=== PATIENT | female | born 1935 | race Caucasian/White ===

== ENCOUNTER 2023-04-09 16:12 | Observation (INO) | payer OTHER ==
[2023-04-09 18:16] VITALS: BMI 25.2
[2023-04-09] MEDS ORDERED: Doxepin HCl 10 MG CAP PO PRN (21:27)
[2023-04-09] MEDS ORDERED: Acetaminophen 650 MG Suppository PR PRN (21:28)
[2023-04-09] MEDS ORDERED: Ondansetron ODT 4 MG TAB PO PRN (21:28)
[2023-04-09] MEDS ORDERED: Acetaminophen 325 MG TAB PO PRN (21:28)
[2023-04-10 04:20] LABS: Anion Gap 12 mmol/L (10-20); BUN (Urea Nitrogen) 19 mg/dL (9.8-20.1); Calc. Creatinine Clearance 40 mL/min (70-130); Calcium 8.6 mg/dL (7.8-10.44); Carbon Dioxide 24 mmol/L (23-31); Chloride 109 mmol/L (98-107); Estimated GFR 55; Glucose 110 mg/dL (83-110); Potassium 3.4 mmol/L (3.5-5.1); Sodium 142 mmol/L (136-145)
[2023-04-10 04:28] LABS: #Eosinphils 0.1 10x3/uL (0.0-0.5); #Monocytes 0.6 10x3/uL (0.0-1.1); #Neutrophils 2.7 10x3/uL (1.5-8.4); %Basophils 0.4 % (0.0-2.0); %Eosinophils 2.2 % (0.0-6.0); %Lymphocytes 27.2 % (18.0-47.0); %Monocytes 12.4 % (0.0-10.0); %Neutrophils 57.6 % (40.0-75.0); Hematocrit 40.4 % (34.9-44.5); Hemoglobin 13.2 g/dL (12.0-15.5); Mean Corpuscular HGB CONC 32.7 g/dL (32.0-36.0); Mean Corpuscular Hemoglobin 29.7 pg (27.0-33.0); Mean Corpuscular Volume 90.8 fl (81.6-98.3); Mean Platelet Volume 11.1 fl (7.4-10.4); Platelet Count 173 10x3/uL (150-450); RBC Distribution Width 13.7 % (11.5-14.5); Red Blood Cell (RBC) Count 4.45 10x6/uL (3.90-5.03); White Blood Cell (WBC) Count 4.6 10x3/uL (3.5-10.5)
[2023-04-10] MEDS ORDERED: Electrolyte Replacement Protocol 1 EACH FS ONE (07:35)
[2023-04-10] MEDS ORDERED: Electrolyte Replacement Protocol FS PRN (08:00)
[2023-04-10] MEDS ORDERED: Carvedilol 6.25 MG TAB PO SCH (08:00)
[2023-04-10] MEDS ORDERED: FLU VACC QS2023(65UP)/MF59C/PF 60 MCG/0.5 ML SYRINGE IM ONE (09:00)
[2023-04-10] MEDS ORDERED: Famotidine 20 MG TAB PO SCH (09:00)
[2023-04-10] MEDS ORDERED: Aspirin 81 mg Enteric Coated Tablet PO SCH (09:00)
[2023-04-10] MEDS ORDERED: Clopidogrel Bisulfate 75 MG TAB PO SCH (09:00)
[2023-04-10 09:20] VITALS: TEMP 98
[2023-04-10] MEDS ORDERED: Potassium Bicarbonate/Cit Ac 20 MEQ TAB PO SCH (11:45)
[2023-04-10 12:34] VITALS: BP 103/49
[2023-04-10] MEDS ORDERED: Atorvastatin Calcium 40 MG TAB PO SCH (21:00)
[2023-04-10] MEDS ORDERED: Multivit, Therapeutic 1 TAB PO SCH (21:00)
[2023-04-11] MEDS ORDERED: Famotidine 20 MG TAB PO SCH (09:00)
== END 2023-04-10 15:51 | disposition home or self-care (01) ==
LOC: CSHTELE 17:54
PROVIDERS: ADMIT Internal Medicine; ATTEND Internal Medicine
DX: R41.3 Other amnesia (principal); K21.9 Gastro-esophageal reflux disease without esophagitis; I63.9 Cerebral infarction, unspecified; I25.2 Old myocardial infarction; I25.10 Atherosclerotic heart disease of native coronary artery without angina pectoris; E86.0 Dehydration; I82.409 Acute embolism and thrombosis of unspecified deep veins of unspecified lower extremity; Z79.82 Long term (current) use of aspirin; Z90.49 Acquired absence of other specified parts of digestive tract; Z79.899 Other long term (current) drug therapy
CPT/HCPCS: 70552; 80048; 82962; 84443; 85025; 97116; G0378 ×2; 36415; 36416; Q0162